=== PATIENT | female | born 1995 | race Caucasian/White ===

== ENCOUNTER 2016-11-25 12:03 | Emergency (ER) | payer MEDICAID ==
[~2016-11-25] VITALS: Ht 157.5 cm; Wt 59.0 kg
[2016-11-25] MEDS ORDERED: BACITRACIN ZINC OINT UDPKT TOP ONE (13:30)
[2016-11-25] MEDS ORDERED: KETOROLAC 60MG/2ML VIAL IM ONE (13:30)
[2016-11-25] MEDS ORDERED: LIDOCAINE HCL 1% 20ML VIAL (Pyxis) INJ MC ONE (13:30)
[2016-11-25 15:41] VITALS: BP 125/73
== END 2016-11-25 15:46 | disposition home or self-care (01) ==
LOC: ER 12:58
DX: L03.031 Cellulitis of right toe (principal); L60.0 Ingrowing nail
CPT/HCPCS: 11750; 96372; 99284; J1885; J3490; Z7610

== ENCOUNTER 2018-07-16 17:13 | Emergency (ER) | payer MEDICAID ==
[~2018-07-16] VITALS: Ht 160 cm; Wt 70.0 kg
[2018-07-16] MEDS ORDERED: LIDOCAINE HCL/PF 1% 2ML VIAL INFIL ONE ×2 (17:45→18:00)
[2018-07-16] MEDS ORDERED: LIDOCAINE HCL/PF 1% 10 MG/ML 5ML VIAL IJ NR (18:00)
[2018-07-16 19:00] VITALS: BP 120/84
== END 2018-07-16 19:05 | disposition home or self-care (01) ==
LOC: ER 17:13
DX: L60.0 Ingrowing nail (principal); R03.0 Elevated blood-pressure reading, without diagnosis of hypertension
CPT/HCPCS: 11730; 99283; J3490